=== PATIENT | male | born 1945 | race Caucasian/White ===

== ENCOUNTER 2017-02-16 13:49 | Observation (INO) | payer MEDICARE, BC ==
--- NOTE | ~2017-02-16 | CT16 ---
[facility] A Service of [facility] RADIOLOGY TEXT RESULTS PATIENT: PAGE MELTON LOCATION: [facility] : 43 UNIT #: [id number] AGE: [address]: Calvin Connors MD SEX: M ORDER DR: [id number] [facility] [address] [address]. [place], [place] [address] [id number] I MR#: [id number] Acc #: [id number] NAME: PAGE MELTON. : 1945 SEX: M STUDY DATE/TIME: 02/16/2017 15:13 UNIT: [facility] ROOM: 67873 STUDY DESCRIPTION: CT Angio Chest for PE Attending Physician: Jas Hall M.D. Ordering Physician: Dhiraj Zelaya D.O. Primary Care Physician: Devon Mckeon M.D. MEDICAL IMAGING REPORT This report is preliminary unless electronic signature is present EXAM CT chest PE protocol. HISTORY 71-year-old male, weakness, diaphoresis this morning, nausea, past history of pulmonary embolus. COMPARISON CT chest 10/21/2016. This CT exam was performed with one or more of the following radiation dose reduction techniques: automatic exposure control, adjustment of mA and/or kV according to patient size, and iterative reconstruction. FINDINGS Axial images performed through the chest following IV contrast. 3-D coronal and sagittal reconstructed images reviewed at a workstation. Pulmonary parenchyma demonstrates centrilobular emphysema. No acute airspace disease. No effusions. Mild tracheobronchomegaly. Suboptimal opacification of the pulmonary arteries but no convincing evidence of pulmonary embolus. Aorta free dissection or aneurysm. Heart size within normal limits. Coronary artery calcifications noted. Patient is post median sternotomy. No significant adenopathy. Visualized upper abdomen unremarkable. Osseous structures and thoracic inlet appear normal. IMPRESSION 1. No acute intrathoracic abnormality identified. In particular no evidence of pulmonary embolus. Apparent complete resolution of the extensive embolus noted on the patient's study in September 2016. 2. Mild to moderate centrilobular emphysema. [facility] A Service of [facility] RADIOLOGY TEXT RESULTS PATIENT: PAGE MELTON LOCATION: [facility] 577-01 : 43 UNIT #: [id number] AGE: [address]: Calvin Connors MD SEX: M ORDER DR: Dictated by... Sarah Marte M.D. THIS IS AN ELECTRONICALLY VERIFIED REPORT Sarah Marte M.D. at 02/17/2017 10:05 AM Ross TD: 02/17/2017 07:30 JOB #: [id number] MEDICAL IMAGING REPORT Page 1 of 1 COPY
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
--- NOTE | ~2017-02-16 | DS ---
Unit #: [id number] #: [id number] Patient: PAGE MELTON [id number] [facility]. [place], [place] [address] [id number] I MR#: [id number] NAME: PAGE MELTON. ROOM: 577 Age: 71 Sex: M Admission Date: 02/16/2017 : 1945 Discharge Date: 02/17/2017 Attending Physician: Calvin Connors M.D. Primary Care Physician: Devon Mckeon M.D. DISCHARGE SUMMARY DISCHARGE DIAGNOSES Acute kidney injury; near syncope; congestive heart failure, type unknown; hypotension. HOSPITAL COURSE The patient is a 71-year-old male admitted to [facility] after he nearly passed out at [facility]. He states it was associated with weakness, diaphoresis, and nausea. He did not lose consciousness however. In the ED, his blood pressure was noted to be in the 70s. The patient was admitted for his hypotension. Also of note, the patient was noted to have a creatinine of 1.4. It is 1.5 at the time of discharge. The patient was seen by Cardiology and had his blood pressure medications adjusted. Of note, he does tell me that he was not actually taking his blood pressure medications prior to this episode, but did accidentally take his blood pressure medication on the morning that the episode occurred. Additionally, he tells me that he had been started on Lasix within the past month for some lower extremity swelling. I feel that this is the cause of the patient's hypotension and acute kidney injury. I have discussed the importance of daily weights and taking his Lasix only if he should gain 3 pounds in 24 hours or 5 pounds over the course of 3 days. Given no further episodes of near syncope and stabilization of his blood pressure, the patient is being discharged home. DISCHARGE MEDICATIONS Xarelto 20 mg daily, Claritin 10 mg daily, metoprolol tartrate 12.5 mg p.o. b.i.d., Lasix 20 mg as needed, Lipitor 20 mg p.o. q.h.s., Prinivil 10 mg p.o. daily, aspirin 81 mg daily, Klor-Con 10 mEq p.o. daily with Lasix. FOLLOWUP The patient should follow up with Dr. Ruiz on 05/05/2017 at 2 p.m. Dictated by... Maxwell Bobby/tatyana TD: 02/17/2017 23:40 JOB #: [id number] Unit #: [id number] #: [id number] Patient: GERONIMOPAGE DISCHARGE SUMMARY Page 1 of 1 X Calvin Connors MD X DISCHARGE SUMMARY
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
--- NOTE | ~2017-02-16 | EKG ---
PATIENT: PAGE MELTON UNIT #: [id number] Ventricular Rate: 50 BPM Atrial Rate: 50 BPM P-R Interval: 190 ms QRS Duration: 76 ms Q-T Interval: 430 ms QTC Calculation(Bezet): 392 ms P Tully: 31 degrees Calculated R Tully: 25 degrees Calculated T Tully: 71 degrees Diagnosis Line: Sinus bradycardia Diagnosis Line: Otherwise normal ECG Diagnosis Line: When compared with ECG of 21-OCT-2016 10:05, Diagnosis Line: Premature ventricular complexes are no longer Diagnosis Line: Present Diagnosis Line: Premature supraventricular complexes are no longer Diagnosis Line: Present Diagnosis Line: Vent. rate has decreased BY 54 BPM Diagnosis Line: ST no longer depressed in Anterior leads Diagnosis Line: T wave inversion no longer evident in Lateral Diagnosis Line: leads Diagnosis Line: QT has shortened Diagnosis Line: [facility] Diagnosis Line: Confirmed by SHARMAINE CARRION MD ([id number]) on 02/17/2017 Diagnosis Line: 10:58:50 PM INTERPRETING MD: MURALI LAM
[2017-02-16 13:44] LABS: URINE SOURCE CLEAN CATCH
[2017-02-16 13:47] LABS: BASOPHIL% 0.4 % (0-2.5); EOSINOPHIL# 0.1 X10e3 (0-0.7); HEMATOCRIT 44.3 % (38.0-50.0); HEMOGLOBIN 15.1 gm/dL (13.0-16.0); LYMPHOCYTE# 1.6 X10e3 (1.0-3.5); LYMPHOCYTE% 15.3 % (17.0-45.0); MEAN CELL VOLUME 87.6 FL (83-96); MEAN CORPUSCULAR HEMOGLOBIN 29.9 PG (28-34); MEAN CORPUSCULAR HGB CONC 34.1 g/dL (30-36); MEAN PLATELET VOLUME 7.6 FL (6.5-11.5); MONOCYTE# 0.8 X10e3 (0-1.0); MONOCYTE% 7.5 % (3.0-12.0); NEUTROPHIL# 8.1 X10e3 (1.5-7.1); NEUTROPHIL% 75.8 % (40-75); PLATELET COUNT 132 X10e3 (140-420); RED BLOOD COUNT 5.05 X10e (3.90-5.60); RED CELL DISTRIBUTION WIDTH 14.2 % (11.0-15.5); WHITE BLOOD COUNT 10.7 X10e3 (4.0-10.5)
[2017-02-16 13:48] LABS: URINE APPEARANCE CLEAR; URINE BILIRUBIN NEG (NEG); URINE BLOOD NEG (NEG); URINE COLOR YELLOW; URINE GLUCOSE NEG (NEG); URINE KETONE NEG (NEG); URINE LEUKOCYTE ESTERASE NEG (NEG); URINE NITRATE NEG (NEG); URINE PH 5.5 (5-8); URINE PROTEIN NEG (NEG); URINE SPECIFIC GRAVITY 1.009 (1.003-1.035); URINE UROBILINOGEN 0.2 MG/DL (NEG)
[~2017-02-16 13:49] MED LIST: ASPIRIN EC81 M1 PO; BISACODYL5 M1 PO; CETIRIZINE HCL10 MG PO; COATED ASPIRIN325 M1 PO; DULCOLAX5 MG PO; LIPITOR20 MG PO; METOPROLOL TAR25 MG PO; NORCO 10/3251 TAB PO; PRINIVIL40 MG PO; ZOFRAN PO
[2017-02-16 13:51] LABS: DIFF IND NO
[2017-02-16 13:57] LABS: CULTURE INDICATED? NO
[2017-02-16 14:01] LABS: POC - CKMB 1.2 ng/mL (0.0-7.9); POC - TROPONIN <0.05 ng/mL (<=0.05)
[2017-02-16 14:07] LABS: INR 1.2; PARTIAL THROMBOPLASTIN TIME 27.1 SECONDS (23.5-31.3); PROTHROMBIN TIME (PATIENT) 12.2 SECONDS (9.6-11.5)
[2017-02-16 14:39] LABS: ALBUMIN SERUM 4.2 g/dL (3.5-5.0); BILIRUBIN, DIRECT 0.1 mg/dL (0.0-0.2); BILIRUBIN,INDIRECT 0.8 mg/dL (0.0-0.9); BILIRUBIN,TOTAL 0.9 mg/dL (0.2-2.0); BUN/CREATININE RATIO 11.42; CALCIUM SERUM 9.8 mg/dL (8.4-10.2); CREATININE SERUM 1.4 mg/dL (0.6-1.4); GLOM FILT RATE Estimated 49.5 mL/min (>60); POTASSIUM 5.1 mmol/L (3.5-5.1); PROTEIN TOTAL SERUM 7.6 g/dL (6.0-8.3)
[2017-02-16 15:16] LABS: POC - CKMB 1.1 ng/mL (0.0-7.9); POC - TROPONIN <0.05 ng/mL (<=0.05)
[2017-02-16] MEDS ORDERED: PRINIVIL40 MG PO (19:03)
[2017-02-16] MEDS ORDERED: METOPROLOL TAR25 MG PO (19:03)
[2017-02-16] MEDS ORDERED: ZYRTEC10 M1 PO (19:04)
[2017-02-16] MEDS ORDERED: LIPITOR20 MG PO (19:04)
[2017-02-16] MEDS ORDERED: KCL PO (19:05)
[2017-02-16] MEDS ORDERED: ASPIRIN81 MG PO (19:05)
[2017-02-16] MEDS ORDERED: FUROSEMIDE40 MG PO (19:05)
[2017-02-16] MEDS ORDERED: XARELTO20 MG PO (19:05)
[2017-02-17 04:48] LABS: BASOPHIL% 0.4 % (0-2.5); EOSINOPHIL# 0.1 X10e3 (0-0.7); EOSINOPHIL% 1.6 % (0.0-7.0); HEMATOCRIT 41.6 % (38.0-50.0); HEMOGLOBIN 13.8 gm/dL (13.0-16.0); LYMPHOCYTE# 1.9 X10e3 (1.0-3.5); LYMPHOCYTE% 24.1 % (17.0-45.0); MEAN CELL VOLUME 88.3 FL (83-96); MEAN CORPUSCULAR HEMOGLOBIN 29.4 PG (28-34); MEAN CORPUSCULAR HGB CONC 33.3 g/dL (30-36); MEAN PLATELET VOLUME 7.4 FL (6.5-11.5); MONOCYTE# 0.8 X10e3 (0-1.0); MONOCYTE% 10.3 % (3.0-12.0); NEUTROPHIL# 4.9 X10e3 (1.5-7.1); NEUTROPHIL% 63.6 % (40-75); PLATELET COUNT 118 X10e3 (140-420); RED BLOOD COUNT 4.71 X10e (3.90-5.60); RED CELL DISTRIBUTION WIDTH 14.5 % (11.0-15.5); WHITE BLOOD COUNT 7.7 X10e3 (4.0-10.5)
[2017-02-17 04:49] LABS: DIFF IND NO
[2017-02-17 05:09] LABS: BUN/CREATININE RATIO 11.33; CALCIUM SERUM 9.2 mg/dL (8.4-10.2); CREATININE SERUM 1.5 mg/dL (0.6-1.4); GLOM FILT RATE Estimated 45.6 mL/min (>60); POTASSIUM 4.2 mmol/L (3.5-5.1)
[2017-02-17 09:29] LABS: INR 1.1; PROTHROMBIN TIME (PATIENT) 11.4 SECONDS (9.6-11.5)
[2017-02-17] MEDS ORDERED: K-DUR10 MEQ PO (13:48)
[2017-02-17] MEDS ORDERED: LASIX20 MG PO (13:49)
[2017-02-17] MEDS ORDERED: ZESTRIL10 MG PO (13:50)
== END 2017-02-17 14:33 | disposition home or self-care (01) ==
LOC: CED 13:49 → CEDOF 19:05 → C5C 02-17 07:39
PROVIDERS: Emergency Medicine; Internal Medicine
DX: N17.9 Acute kidney failure, unspecified (principal); R55 Syncope and collapse; I50.9 Heart failure, unspecified; I95.9 Hypotension, unspecified; D64.9 Anemia, unspecified; R00.1 Bradycardia, unspecified; I25.10 Atherosclerotic heart disease of native coronary artery without angina pectoris; Z86.711 Personal history of pulmonary embolism; I08.3 Combined rheumatic disorders of mitral, aortic and tricuspid valves; Z85.828 Personal history of other malignant neoplasm of skin; K21.9 Gastro-esophageal reflux disease without esophagitis; Z86.79 Personal history of other diseases of the circulatory system; Z95.1 Presence of aortocoronary bypass graft; Z87.891 Personal history of nicotine dependence
CPT/HCPCS: 36415; 71275; 80048; 80076; 81003; 82553; 82947; 84484; 85025; 85610; 85730; 93005; 96360; 96361; 99285; G0378; Q9967

== ENCOUNTER 2017-07-18 07:49 | Emergency (ER) | payer MEDICARE, BC ==
[~2017-07-18] VITALS: Ht 177.8 cm; Wt 83.9 kg
--- NOTE | ~2017-07-18 | CT4 ---
[facility] A Service of [facility] & [facility] RADIOLOGY TEXT RESULTS PATIENT: PAGE MELTON LOCATION: [facility] : 43 UNIT #: [id number] AGE: [address]: Samy Randhawa MD SEX: M ORDER DR: [id number] [facility] [address] [place], [place] [address] [id number] MR#: [id number] Acc #: [id number] NAME: PAGE MELTON. : 1945 SEX: M STUDY DATE/TIME: 07/18/2017 UNIT: [facility] ROOM: STUDY DESCRIPTION: CT Abd and Pelv Wo Cont Attending Physician: Samy Randhawa M.D. Ordering Physician: Samy Randhawa M.D. Primary Care Physician: Devon Mckeon M.D. MEDICAL IMAGING REPORT This report is preliminary unless electronic signature is present EXAM CT abdomen and pelvis without contrast 07/18/2017 0907 hours HISTORY 71-year-old man complaining of left lower quadrant abdominal pain since [address] abdomen, 10/21/2016. TECHNIQUE Helical non-contrasted images were obtained from the lung bases through the pubic symphysis without oral or intravenous contrast. Total exam DLP 727 mGy/cm. This CT exam was performed with one or more of the following radiation dose reduction techniques: automatic exposure control, adjustment of mA and/or kV according to patient size, and iterative reconstruction. FINDINGS Images through the lung bases demonstrate linear scar in the lingular segment of the left upper lobe. There is mild emphysematous change. There is no acute pulmonary density or pleural effusion. Non-contrasted images through the abdomen demonstrate a normal appearance to the liver, spleen, pancreas and bile ducts. Gallstones are present in the gallbladder without gallbladder wall thickening or inflammation. The adrenal glands are normal. The kidneys demonstrate no mass, stone or distension. There is no ureterectasis or ureteral calculus. There is atherosclerotic change of the abdominal aorta without aneurysm. The stomach and small bowel are normal in appearance. The cecum and appendix are normal. There is moderate stool in the colon. There are [facility] A Service of [facility] & [facility] RADIOLOGY TEXT RESULTS PATIENT: PAGE MELTON LOCATION: [facility] : 41 UNIT #: [id number] AGE: [address]: Samy Randhawa MD SEX: M ORDER DR: colonic diverticula of the descending colon and sigmoid colon with a focal area of wall thickening at the junction of descending colon and sigmoid colon with surrounding ground-glass change suggesting acute inflammation, most likely acute diverticulitis. This inflammation and thickening is new since 10/21/2016. There is no fluid, fluid collection or abscess. CT pelvis is degraded by streak artifact from hardware at the left hip. There is no acute abnormality in the lower pelvis. There are postoperative changes in the anterior abdominal wall. There is a small fat-density hernia in the midline cephalad to the right of the umbilicus. This is very small, approximately 1 cm in size, and new from the prior exam. IMPRESSION 1. The patient has underlying diverticulosis, particularly in the descending colon and sigmoid colon, with focal wall thickening at the junction of descending colon and sigmoid colon, in an area of most severe diverticulosis. There is ground-glass change in the surrounding fat suggesting acute diverticulitis. There is no perforation, free air, fluid or fluid collection. 2. No renal or ureteral calculi. 3. Cholelithiasis without evidence of cholecystitis. 4. There is an area of previous bowel anastomoses in the region of the mid-transverse colon. This appears normal. 5. There is a new fat-density ventral wall hernia, cephalad to the slightly to the right of the umbilicus. This contains abdominal fat. There is no bowel involvement. Dictated by... Tess Riojas M.D. THIS IS AN ELECTRONICALLY VERIFIED REPORT Tess Riojas M.D. at 07/19/2017 12:31 PM Rosetta TD: 07/18/2017 17:44 JOB #: [id number] MEDICAL IMAGING REPORT Page 1 of 1 COPY
[~2017-07-18 07:49] MED LIST changes: +ASPIRIN81 MG PO; +FUROSEMIDE40 MG PO; +K-DUR10 MEQ PO; +KCL PO; +LASIX20 MG PO; +XARELTO20 MG PO; +ZESTRIL10 MG PO; +ZYRTEC10 M1 PO
[2017-07-18 08:55] LABS: BASOPHIL% 0.4 % (0-2.5); EOSINOPHIL# 0.1 X10e3 (0-0.7); EOSINOPHIL% 1.4 % (0.0-7.0); HEMATOCRIT 43.6 % (38.0-50.0); HEMOGLOBIN 14.9 gm/dL (13.0-16.0); LYMPHOCYTE# 1.5 X10e3 (1.0-3.5); LYMPHOCYTE% 16.2 % (17.0-45.0); MEAN CELL VOLUME 87.6 FL (83-96); MEAN CORPUSCULAR HGB CONC 34.3 g/dL (30-36); MEAN PLATELET VOLUME 7.6 FL (6.5-11.5); MONOCYTE# 0.8 X10e3 (0-1.0); MONOCYTE% 8.2 % (3.0-12.0); NEUTROPHIL# 6.9 X10e3 (1.5-7.1); NEUTROPHIL% 73.8 % (40-75); PLATELET COUNT 113 X10e3 (140-420); RED BLOOD COUNT 4.98 X10e (3.90-5.60); RED CELL DISTRIBUTION WIDTH 13.6 % (11.0-15.5); WHITE BLOOD COUNT 9.3 X10e3 (4.0-10.5)
[2017-07-18 08:56] LABS: DIFF IND NO
[2017-07-18 09:52] LABS: URINE SOURCE CLEAN CATCH
[2017-07-18 10:00] LABS: URINE APPEARANCE CLEAR; URINE BILIRUBIN NEG (NEG); URINE BLOOD NEG (NEG); URINE COLOR YELLOW; URINE GLUCOSE NEG (NEG); URINE KETONE NEG (NEG); URINE LEUKOCYTE ESTERASE NEG (NEG); URINE NITRATE NEG (NEG); URINE PROTEIN NEG (NEG); URINE UROBILINOGEN 0.2 MG/DL (NEG)
[2017-07-18 10:02] LABS: CULTURE INDICATED? NO
[2017-07-18 10:41] LABS: ALBUMIN SERUM 3.8 g/dL (3.5-5.0); BILIRUBIN, DIRECT 0.1 mg/dL (0.0-0.2); BILIRUBIN,INDIRECT 0.7 mg/dL (0.0-0.9); BILIRUBIN,TOTAL 0.8 mg/dL (0.2-2.0); BUN/CREATININE RATIO 10.76; CALCIUM SERUM 9.2 mg/dL (8.4-10.2); CREATININE SERUM 1.3 mg/dL (0.6-1.4); GLOM FILT RATE Estimated 54.1 mL/min (>60); POTASSIUM 4.4 mmol/L (3.5-5.1); PROTEIN TOTAL SERUM 6.9 g/dL (6.0-8.3)
== END 2017-07-18 11:23 | disposition home or self-care (01) ==
LOC: CED 07:49
PROVIDERS: Emergency Medicine
DX: K57.32 Diverticulitis of large intestine without perforation or abscess without bleeding (principal); Z88.2 Allergy status to sulfonamides; Z88.8 Allergy status to other drugs, medicaments and biological substances
CPT/HCPCS: 36415; 74176; 80048; 80076; 81003; 82150; 83690; 85025; 96360; 99284